=== PATIENT | male | born 1955 | race Caucasian/White ===

== ENCOUNTER 2017-08-29 14:21 | Emergency (ER) | payer BC, OTHER ==
[~2017-08-29] VITALS: Ht 180.3 cm; Wt 104.3 kg
[2017-08-29] MEDS ORDERED: TRIAMTERENE (14:47)
[2017-08-29] MEDS ORDERED: THYROID MEDS (14:47)
[2017-08-29] MEDS ORDERED: VERAPAMIL (14:47)
[2017-08-29] MEDS ORDERED: TESTOSTERONE CREAM (14:47)
--- NOTE | 2017-08-29 15:08 | NUR ---
[employer] tech at the bedside.
[2017-08-29 15:37] VITALS: BP 150/97
== END 2017-08-29 15:38 | disposition home or self-care (01) ==
LOC: ER 14:23
DX: S80.12XA Contusion of left lower leg, initial encounter (principal); I10 Essential (primary) hypertension; Z79.899 Other long term (current) drug therapy; X58.XXXA Exposure to other specified factors, initial encounter; Y93.89 Activity, other specified; Y92.89 Other specified places as the place of occurrence of the external cause; Y99.8 Other external cause status
CPT/HCPCS: A4663